=== PATIENT | male | born 1960 | race Caucasian/White ===

== ENCOUNTER 2018-04-03 08:42 | Outpatient (REF) | payer BC, SELFPAY ==
--- NOTE | 2018-04-03 08:00 | PAPNONF_PTH ---
PATIENT: Nabor Polanco LOC: [facility] U#:[id number] AGE/SX: 57/M ROOM: RE04/03/[address]: Garrett Daniel MD : 1960 BED: DIS: 04/03/2018 SPEC #: [id number] RECD: 04/03/18 13:07 STATUS: EMELY REQ #: [id number] RIMA: 04/03/18 08:[address]: Garrett Daniel DEPT: [facility] Cytology RECD BY: Destiny Han ENTERED: 04/03/18 13:08 SP TYPE: PAPTARA TREVINO DR: Jacky Tamayo Tissues: 1 - BODY FLUID CYTO(SPUTUM/URINE)[facility] Procedures: BODY FLUID CYTO(URINE/SPUTUM) Comments: [id number] (TOTAL VOLUME = 40 ml's) (40 ml's URINE & 40 ml's CYTOLYT ADDED)
== END 2018-04-03 09:02 ==
LOC: LBN 08:42
PROVIDERS: PCP Family Medicine; Visit Provider Urology
DX: Z85.51 Personal history of malignant neoplasm of bladder (principal)
CPT/HCPCS: 88104

== ENCOUNTER 2018-10-26 12:35 | Outpatient (REF) | payer BC, SELFPAY ==
[2018-10-26 13:54] LABS: Anion Gap 10.4 mmol/L (3-11); BUN 15 mg/dL (7-18); CO2 26.6 mmol/L (21.0-32.0); CREATININE 0.75 mg/dL (0.70-1.30); Calcium 9.1 mg/dL (8.5-10.1); Chloride 103 mmol/L (98-107); Glucose 95 mg/dL (70-100); Potassium 3.9 mmol/L (3.5-5.1); Sodium 140 mmol/L (136-145)
== END 2018-10-26 12:55 ==
LOC: NCHCN 12:35
PROVIDERS: PCP Family Medicine; Visit Provider Family Medicine
DX: I10 Essential (primary) hypertension (principal)
CPT/HCPCS: 80048

== ENCOUNTER 2019-06-14 09:31 | Outpatient (CLI) | payer BC, SELFPAY ==
[2019-06-14 14:33] LABS: Anion Gap 9.4 mmol/L (3-11); BUN 17 mg/dL (7-18); CO2 29.6 mmol/L (21.0-32.0); CREATININE 0.75 mg/dL (0.70-1.30); Calcium 9.2 mg/dL (8.5-10.1); Chloride 101 mmol/L (98-107); Glucose 82 mg/dL (74-106); Potassium 4.1 mmol/L (3.5-5.1); Sodium 140 mmol/L (136-145)
[2019-06-14 14:50] LABS: Ferritin 78 ng/mL (26-388); TSH 2.13 uIU/mL (0.36-3.74)
== END 2019-06-14 09:51 ==
PROVIDERS: PCP Family Medicine; Visit Provider Nurse Practitioner
DX: M25.50 Pain in unspecified joint (principal); R53.83 Other fatigue; I10 Essential (primary) hypertension; R91.8 Other nonspecific abnormal finding of lung field; F17.209 Nicotine dependence, unspecified, with unspecified nicotine-induced disorders; C67.9 Malignant neoplasm of bladder, unspecified
CPT/HCPCS: 36415; 80048; 80053; 82728; 84443

== ENCOUNTER 2019-06-29 11:52 | Outpatient (REF) | payer BC, SELFPAY ==
--- NOTE | 2019-06-29 11:45 | PAPNONF_PTH ---
PATIENT: Nabor Polanco LOC: [facility] U#:[id number] AGE/SX: 58/M ROOM: RE06/29/[address]: Garrett Daniel MD : 1960 BED: DIS: 06/29/2019 SPEC #: [id number] RECD: 06/29/19 13:11 STATUS: EMELY REQ #: [id number] RIMA: 06/29/19 11:[address]: Garrett Daniel DEPT: [facility] Cytology RECD BY: Destiny Han ENTERED: 06/29/19 13:15 SP TYPE: PAPVINITAF BELINDA DR: Jacky Tamayo Tissues: 1 - BODY FLUID CYTO(SPUTUM/URINE)[facility] Procedures: BODY FLUID CYTO(URINE/SPUTUM) Comments: [id number] (TOTAL VOLUME = 40 ml's) (40 ml's URINE & 40 ml's CYTOLYTE ADDED)
== END 2019-06-29 12:12 ==
LOC: LBN 11:52
PROVIDERS: PCP Family Medicine; Visit Provider Urology
DX: Z85.51 Personal history of malignant neoplasm of bladder (principal)
CPT/HCPCS: 88104

== ENCOUNTER 2019-08-16 01:47 | Outpatient (CLI) | payer BC, SELFPAY ==
--- NOTE | 2019-08-16 | DI.CT_ITS ---
EXAM: CT CHEST WO CLINICAL HISTORY: F/U RT POSTERIOR NODULARITY, LUNG SCAR.J98.4, YEARLY EXAM TECHNIQUE: Imaging Protocol: Axial computed tomography images with coronal and sagittal reformatted images were created and reviewed CONTRAST MATERIAL: None COMPARISON: CHEST WITH CONTRAST from 04/08/2017 FINDINGS: Tracheobronchial tree: Patent where visualized. Mediastinum and Irina: No dominant adenopathy or fluid collection. Pulmonary parenchyma: There has been no change in size or appearance of the previously noted pleural based area of nodularity in the posterior right upper lobe. Minimal emphysematous changes are small b lebs are seen in the upper lobes. There is minimal biapical pleural scarring. There are no new nodule s, infiltrates or evidence of a mass.. Pleura: No effusion or pneumothorax. Heart: The heart is not dilated. Mild coronary artery calcifications are seen. Aorta: Thoracic aorta non-dilated. Mild calcification Upper abdomen: Unremarkable. Lymph nodes: Within normal limits. Bones: Degenerative disc changes IMPRESSION: Stable area of pleural based nodularity in the right upper lobe. No new abnormalities are seen. DATA REPOSITORY: All CT scans at this facility are submitted to the National Radiology Data Registry (NRDR) Dose Index Registry (DIR) with the [employer] (ACR). RADIATION OPTIMIZATION: All CT scans at this facility use at least one of these dose optimization te chniques: automated exposure control; mA and/or kV adjustment per patient size (includes targeted exa ms where dose is matched to clinical indication); or iterative reconstruction.
== END 2019-08-16 02:07 ==
PROVIDERS: PCP Family Medicine; Visit Provider Family Medicine
DX: J98.4 Other disorders of lung (principal); J43.8 Other emphysema
CPT/HCPCS: 71250

== ENCOUNTER 2020-06-21 12:41 | Outpatient (REF) | payer BC, SELFPAY ==
[2020-06-21 16:06] LABS: Anion Gap 5.2 mmol/L (3-11); BUN 14 mg/dL (7-18); CO2 30.8 mmol/L (21.0-32.0); CREATININE 0.8 mg/dL (0.70-1.30); Calcium 9.1 mg/dL (8.5-10.1); Calculated LDL 121 mg/dL (<100); Chloride 104 mmol/L (98-107); Cholesterol 182 mg/dL (<200); Glucose 96 mg/dL (74-106); HDL Cholesterol 46 mg/dL (40-60); Sodium 140 mmol/L (136-145); Triglyceride 78 mg/dL (<150)
== END 2020-06-21 12:42 | disposition home or self-care (01) ==
LOC: NCHCN 12:41
PROVIDERS: PCP Family Medicine; Visit Provider Family Medicine
DX: Z00.00 Encounter for general adult medical examination without abnormal findings (principal); I10 Essential (primary) hypertension; F17.200 Nicotine dependence, unspecified, uncomplicated
CPT/HCPCS: 80048; 80061

== ENCOUNTER 2020-11-08 12:48 | Outpatient (REF) | payer BC, SELFPAY ==
[2020-11-10 11:50] LABS: COVID-19 RT-PCR UVMMC Result Negative (Negative)
== END 2020-11-08 12:49 | disposition home or self-care (01) ==
LOC: LBN 12:48
PROVIDERS: PCP Family Medicine; Visit Provider Physician Assistant Medical
DX: Z20.822 Contact with and (suspected) exposure to COVID-19 (principal); J06.9 Acute upper respiratory infection, unspecified
CPT/HCPCS: U0003

== ENCOUNTER 2021-07-20 18:52 | Outpatient (REF) | payer BC, SELFPAY ==
[2021-07-20 20:29] LABS: BUN 17 mg/dL (7-18); Calcium 9.5 mg/dL (8.5-10.1); Chloride 101 mmol/L (98-107); Glucose 84 mg/dL (74-106); Sodium 140 mmol/L (136-145)
== END 2021-07-20 18:53 | disposition home or self-care (01) ==
LOC: NCHCN 18:52
PROVIDERS: PCP Family Medicine; Visit Provider Family Medicine
DX: I10 Essential (primary) hypertension (principal)
CPT/HCPCS: 80048

== ENCOUNTER 2021-08-01 03:32 | Outpatient (CLI) | payer BC, SELFPAY ==
--- NOTE | 2021-08-23 12:22 | W.CARDEVENT ---
Date of service: 08/23/21 Time of Service: 12:22 Cardiac Event Recorder Referring Provider:: Jacky Tamayo Indications:: Bradycardia Cardiac Event Note: This is a 14-day cardiac exercise physiologist, reportedly ordered for bradycardia. Predominant rhythm was sinus with an average heart rate of 64. Minimum was 39, maximum 127 There were rare ventricular ectopic beats a total of 6 brief runs of nonsustained ventricular tachycardia were recorded. The longest of these was 4 beats in duration There were rare atrial premature beats. A total of 31 self-limited atrial runs occurred. The longest of these was 10 beats in duration There was no atrial fibrillation, no high-grade AV block, no pauses greater than 3 seconds Patient symptoms were reported. Chest pain or pressure with sitting corresponded to sinus bradycardia at 50 with an interpolated PVC Patient symptoms of rapid or fast heartbeat with walking corresponded to sinus rhythm at 90.
== END 2021-08-01 03:33 | disposition home or self-care (01) ==
LOC: RT 03:32
PROVIDERS: PCP Family Medicine; Visit Provider Family Medicine
DX: I49.8 Other specified cardiac arrhythmias (principal); I10 Essential (primary) hypertension; F17.210 Nicotine dependence, cigarettes, uncomplicated; I49.1 Atrial premature depolarization; R00.1 Bradycardia, unspecified
CPT/HCPCS: 93246; 93225

== ENCOUNTER 2021-08-28 10:50 | Outpatient (REF) | payer BC, SELFPAY ==
--- NOTE | 2021-08-28 10:05 | SKI_PTH ---
PATIENT: Nabor Polanco LOC: [facility] U#:[id number] AGE/SX: 61/M ROOM: RE08/28/[address]: Jacky Tamayo : 1960 BED: DIS: 08/28/2021 SPEC #: [id number] RECD: 08/28/21 16:38 STATUS: EMELY RAY #: [id number] RIMA: 08/28/21 10:[address]: Jacky Tamayo DEPT: Surgical Specimen RECD BY: Destiny Han Tissues: 1 - SKIN BIOPSY(SHAVE/PUNCH) Procedures: SKIN LEVEL 4 Comments: [id number]
== END 2021-08-28 10:51 | disposition home or self-care (01) ==
LOC: NCHCN 10:50
PROVIDERS: PCP Family Medicine; Visit Provider Family Medicine
DX: L82.1 Other seborrheic keratosis (principal)
CPT/HCPCS: 88305

== ENCOUNTER 2021-10-19 08:58 | Outpatient (CLI) | payer BC, SELFPAY ==
--- NOTE | 2021-10-19 08:45 | RT.EKG_ITS ---
APPROVED REPORT Exam: Resting ECG Reason for Exam: bradycardia Patient Location: O HR:61 bpm ECG Measurements Heart Rate 61 AXIS SC 165 P 68 QRSd 118 QRS 21 QT 413 T 28 QTc 416 Conclusion Sinus rhythm...normal P axis, V-rate 50- 99 Incomplete right bundle branch block...QRSd >112, terminal axis(90,270)
== END 2021-10-19 08:59 | disposition home or self-care (01) ==
LOC: DI.CARD 08:59
PROVIDERS: PCP Family Medicine; Visit Provider Internal Medicine Cardiovascular Disease
DX: I49.8 Other specified cardiac arrhythmias (principal)
CPT/HCPCS: 93010

== ENCOUNTER 2022-04-12 11:48 | Outpatient (REF) | payer BC, SELFPAY ==
--- NOTE | 2022-04-12 11:15 | ANUSTAG_PTH ---
PATIENT: Nabor Polanco LOC: [facility]#:[id number] AGE/SX: 61/M ROOM: RE04/12/[address]: Jacky Tamayo : 1960 BED: DIS: 04/12/2022 SPEC #: [id number] RECD: 04/15/22 12:08 STATUS: EMELY REQ #: [id number] RIMA: 04/12/22 11:[address]: Jacky Tamayo DEPT: Surgical Specimen RECD BY: Destiny Han Tissues: 1 - ANUS TAG Procedures: SKIN LEVEL 4 P16 IPEX Comments: [id number]
== END 2022-04-12 11:49 | disposition home or self-care (01) ==
LOC: NCHCN 11:48
PROVIDERS: PCP Family Medicine; Visit Provider Family Medicine
DX: K62.82 Dysplasia of anus (principal)
CPT/HCPCS: 88342; 88304; 88305

== ENCOUNTER 2022-09-11 18:07 | Outpatient (REF) | payer BC, SELFPAY ==
[2022-09-11 18:30] LABS: Anion Gap 4.3 mmol/L (3-11); BUN 13 mg/dL (7-18); CO2 32.7 mmol/L (21.0-32.0); Calcium 9.5 mg/dL (8.5-10.1); Chloride 101 mmol/L (98-107); Estimated GFR 86.16 (mL/min/1.73m2); Glucose 104 mg/dL (74-106); Sodium 138 mmol/L (136-145)
== END 2022-09-11 18:08 | disposition home or self-care (01) ==
LOC: NCHCN 18:07
PROVIDERS: PCP Family Medicine; Visit Provider Family Medicine
DX: I10 Essential (primary) hypertension (principal)
CPT/HCPCS: 80048

== ENCOUNTER 2023-03-18 16:19 | Outpatient (REF) | payer BC, SELFPAY ==
--- NOTE | 2023-03-18 10:11 | SKI_PTH ---
PATIENT: Nabor Polanco LOC: [facility]#:[id number] AGE/SX: 62/M ROOM: RE03/18/[address]: Jacky Tamayo : 1960 BED: DIS: 03/18/2023 SPEC #: [id number] RECD: 03/19/23 12:49 STATUS: EMELY RAY #: [id number] RIMA: 03/18/23 10:[address]: Jacky Tamayo DEPT: Surgical Specimen RECD BY: Destiny Han Tissues: 1 - SKIN BIOPSY(SHAVE/PUNCH) Procedures: SKIN LEVEL 4 Comments: [id number]
== END 2023-03-18 16:20 | disposition home or self-care (01) ==
LOC: NCHCN 16:19
PROVIDERS: PCP Family Medicine; Visit Provider Family Medicine
DX: L98.8 Other specified disorders of the skin and subcutaneous tissue (principal); L28.1 Prurigo nodularis
CPT/HCPCS: 88305

== ENCOUNTER 2023-09-16 14:37 | Outpatient (REF) | payer BC, SELFPAY ==
[2023-09-16 15:37] LABS: Abs Immature Grans 0.01 10^3/uL (0.0-0.06); Absolute Basophil Count 0.02 10^3/uL (0.0-0.2); Absolute Eosinophil Count 0.08 10^3/uL (0.0-0.7); Absolute Lymphocyte Count 2.16 10^3/uL (1.2-3.4); Absolute Monocyte Count 0.54 10^3/uL (0.1-0.8); Absolute Neutrophil Count 3.04 10^3/uL (1.2-6.7); Basophils % 0.3 %; Eosinophils % 1.4 %; HCT 42.2 % (40.0-50.0); Immature Grans % 0.2 %; Lymphocytes % 36.9 %; MCH 29.7 pg (27.0-33.0); MCHC 33.2 % (32.0-36.0); MCV 89 fL (80-95); MPV 8.7 fL (8.0-11.0); Monocytes % 9.2 %; Platelet Count 269 10^3/uL (130-400); RBC 4.72 10^6/uL (4.36-5.78); RDW 13.1 % (11.8-14.1); RDW-SD 42.7 fL; WBC 5.85 10^3/uL (4.4-10.8)
[2023-09-16 15:46] LABS: Anion Gap 7.8 mmol/L (3-11); BUN 18 mg/dL (7-18); CO2 31.2 mmol/L (21.0-32.0); CREATININE 0.9 mg/dL (0.70-1.30); Calcium 9.2 mg/dL (8.5-10.1); Calculated LDL 85 mg/dL (<100); Chloride 103 mmol/L (98-107); Cholesterol 143 mg/dL (<200); Estimated GFR 97.17 (mL/min/1.73m2); Glucose 80 mg/dL (74-106); HDL Cholesterol 39 mg/dL (40-60); Sodium 142 mmol/L (136-145); Triglyceride 97 mg/dL (<150)
[2023-09-16 16:11] LABS: Hemoglobin A1C 6.3 % (<5.7)
[2023-09-17 10:34] LABS: HIV-1/2 Ag & Ab Screen Negative (Negative)
== END 2023-09-16 14:38 | disposition home or self-care (01) ==
LOC: NCHCN 14:37
PROVIDERS: PCP Family Medicine; Visit Provider Student in an Organized Health Care Education/Training Program
DX: E78.5 Hyperlipidemia, unspecified (principal); I10 Essential (primary) hypertension; Z11.4 Encounter for screening for human immunodeficiency virus [HIV]
CPT/HCPCS: 80048; 80061; 87389; 83036; 85025

== ENCOUNTER 2023-11-25 15:56 | Outpatient (CLI) | payer BC, SELFPAY ==
[2023-11-25 14:22] LABS: Abs Immature Grans 0.01 10^3/uL (0.0-0.06); Absolute Basophil Count 0.03 10^3/uL (0.0-0.2); Absolute Eosinophil Count 0.04 10^3/uL (0.0-0.7); Absolute Neutrophil Count 4.47 10^3/uL (1.2-6.7); Basophils % 0.4 %; Eosinophils % 0.5 %; HCT 45.6 % (40.0-50.0); HGB 15.4 g/dL (13.5-17.5); Immature Grans % 0.1 %; Lymphocytes % 29.9 %; MCH 29.7 pg (27.0-33.0); MCHC 33.8 % (32.0-36.0); MCV 88 fL (80-95); MPV 8.3 fL (8.0-11.0); Monocytes % 8.2 %; Neutrophils % 60.9 %; Platelet Count 244 10^3/uL (130-400); RBC 5.18 10^6/uL (4.36-5.78); RDW 12.7 % (11.8-14.1); RDW-SD 41.4 fL; WBC 7.35 10^3/uL (4.4-10.8)
[2023-11-25 14:27] LABS: ESR 4 mm/hr (0-20)
[2023-11-25 15:09] LABS: ALT 23 U/L (16-63); AST 10 U/L (15-37); Albumin 4.1 g/dL (3.4-5.0); Alkaline Phosphatase 66 U/L (46-116); Anion Gap 7.7 mmol/L (3-11); BUN 15 mg/dL (7-18); Bilirubin, Total 0.42 mg/dL (0.2-1.0); CO2 30.3 mmol/L (21.0-32.0); Calcium 9.3 mg/dL (8.5-10.1); Chloride 99 mmol/L (98-107); Estimated GFR 85.63 (mL/min/1.73m2); Folate 10.9 ng/mL (8.6-20.0); Glucose 152 mg/dL (74-106); Potassium 3.5 mmol/L (3.5-5.1); Sodium 137 mmol/L (136-145); TSH (W/Ref FT4) 1.79 uIU/mL (0.36-3.74); Total Protein 7.5 g/dL (6.4-8.2); Vitamin B12 314 pg/mL (193-986)
[2023-11-25 15:34] LABS: C-Reactive Protein < 0.50 mg/dL (<or=0.5)
[2023-11-27 20:24] LABS: Anaplasma phagocytophilum Negative (Negative); B. miyamotoi PCR Negative (Negative); Babesia divergens/MO-1 Negative (Negative); Babesia duncani Negative (Negative); Babesia microti Negative (Negative); Ehrlichia chaffeensis Negative (Negative); Ehrlichia ewingii/canis Negative (Negative); Ehrlichia muris eauclairensis Negative (Negative)
== END 2023-11-25 15:57 | disposition home or self-care (01) ==
LOC: LBO 15:57
PROVIDERS: PCP Family Medicine; Visit Provider Student in an Organized Health Care Education/Training Program
DX: R20.2 Paresthesia of skin (principal)
CPT/HCPCS: 36415; 80053; 85652; 87798; 82607; 82746; 84443; 85025; 86140

== ENCOUNTER 2023-12-29 16:40 | Outpatient (CLI) | payer BC, SELFPAY ==
[2023-12-29 11:51] LABS: Bilirubin Small (Negative); Blood Negative (Negative); Clarity Clear (Clear); Glucose Negative (Negative); Ketones Trace mg/dL (Negative); Leukocyte Esterase Negative (Negative); Nitrite Negative (Negative); Specific Gravity >= 1.030 (1.005-1.025); pH 5.5 (5-8)
[2023-12-29 12:25] LABS: FREE T4 1.38 ng/dL (0.76-1.46); TSH 1.55 uIU/Ml (0.36-3.74)
[2023-12-29 18:03] LABS: T3, Total 166 ng/dL (97-169)
[2024-01-02 00:16] LABS: PSA, Screening 0.5 ng/mL (<=4.5)
== END 2023-12-29 16:41 | disposition home or self-care (01) ==
LOC: LBO 16:43
PROVIDERS: PCP Student in an Organized Health Care Education/Training Program; Visit Provider Student in an Organized Health Care Education/Training Program
DX: R20.2 Paresthesia of skin (principal)
CPT/HCPCS: 36415; 84153; 81003; 84439; 84443; 84480

== ENCOUNTER 2024-01-20 10:28 | Outpatient (CLI) | payer BC, SELFPAY ==
[2024-01-20 11:34] LABS: Anion Gap 10.6 mmol/L (3-11); BUN 12 mg/dL (7-18); CO2 29.4 mmol/L (21.0-32.0); CREATININE 0.9 mg/dL (0.70-1.30); Calcium 9.6 mg/dL (8.5-10.1); Chloride 99 mmol/L (98-107); Estimated GFR 97.17 (mL/min/1.73m2); Glucose 107 mg/dL (74-106); Potassium 3.9 mmol/L (3.5-5.1); Sodium 139 mmol/L (136-145)
== END 2024-01-20 10:29 | disposition home or self-care (01) ==
LOC: LBO 10:28
PROVIDERS: PCP Student in an Organized Health Care Education/Training Program; Visit Provider Student in an Organized Health Care Education/Training Program
DX: R63.4 Abnormal weight loss (principal)
CPT/HCPCS: 36415; 80048

== ENCOUNTER 2024-01-27 08:46 | Outpatient (CLI) | payer BC, SELFPAY ==
--- NOTE | 2024-01-27 | DI.MRI_ITS ---
Exam(s) MR LUMBAR SPINE WO EXAM: MR LUMBAR SPINE WO CLINICAL HISTORY: HEMANGIOMA L [address] scan,paresthesia both legs. TECHNIQUE: Multiplanar multisequence MRI of the Lumbar spine was performed. COMPARISON: CT CT CHEST/ABD/PEL W from 01/23/2024 FINDINGS: Conus medullaris is at normal level. There is no evidence of conus mass nor subjacent clumping of in trathecal nerve roots to suggest arachnoiditis. 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 This is assoc iated with benign smooth osseous erosion of the right-side of the sacral canal at this level. Bones:There are no fractures nor ominous osseous lesions in the lumbar vertebral bodies and visualize d sacrum. There is a benign intravertebral benign hemangioma in the L2 vertebra extending from super ior to inferior endplate measuring 2.3 cm craniocaudal by 1.8 cm AP by 1.6 cm wide. Smaller intraoss eous hemangioma is noted in the L1 and L3 vertebral bodies. With respect to the individual disc levels, there is no loss of disc height and there is normal disc signal at all levels of the lumbar spine in this 63-year-old patient. T12-L1: Anterior osseous lipping. No disc herniation or canal stenosis nor foraminal stenosis. No s ignificant facet arthropathy. L1-2: Anterior osseous lipping. Normal disc height and signal. No disc herniation nor central canal stenosis.No foraminal stenosis L2-3: Anterior osseous lipping. Normal disc height. Mild relatively symmetrical annular bulging but no significant focal disc herniation or central canal stenosis.No foraminal stenosis.No facet arthrop athy. L3-4: Normal disc height and signal. No disc herniation or central canal stenosis.No foraminal steno sis.No significant facet arthropathy. L4-5: Normal disc height and signal. No disc herniation or canal stenosis. No foraminal stenosis. No significant facet arthropathy L5-S1: Normal disc height and signal. No disc herniation nor central canal stenosis. No significant foraminal stenosis. No significant facet arthropathy Soft tissues: paraspinal soft tissues appear unremarkable. IMPRESSION: 1. No significant degenerative disc disease in the lumbosacral spine. 2. 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 This is associat ed with benign smooth erosion of the right-side of the sacral canal at this level. On the axial T2 s equence at this level there is some compression of the exiting right nerve root at this level (axial T2 series 35429/image 3). 3. Benign intraosseous hemangiomas noted in L2, L3, and L1 vertebral bodies. These are not clinicall y significant. DATA REPOSITORY:
== END 2024-01-27 09:06 ==
LOC: DI 08:49
PROVIDERS: PCP Student in an Organized Health Care Education/Training Program; Visit Provider Student in an Organized Health Care Education/Training Program
DX: G96.191 Perineural cyst (principal)
CPT/HCPCS: 72148

== ENCOUNTER 2024-08-05 14:31 | Outpatient (REF) | payer MEDICAID, SELFPAY ==
[2024-08-05 15:30] LABS: Anion Gap 7.9 mmol/L (3-11); BUN 14 mg/dL (7-18); CO2 31.1 mmol/L (21.0-32.0); CREATININE 0.9 mg/dL (0.70-1.30); Calcium 9.8 mg/dL (8.5-10.1); Chloride 101 mmol/L (98-107); Estimated GFR 97.17 (mL/min/1.73m2); Glucose 80 mg/dL (74-106); Sodium 140 mmol/L (136-145)
[2024-08-05 16:59] LABS: COMMENT (LAB VIEW ONLY) 91.82 mg/dL; Microalb ug/mg Crea 5.4 ug/mg Cr
== END 2024-08-05 14:32 | disposition home or self-care (01) ==
LOC: NCHCN 14:31
PROVIDERS: PCP Student in an Organized Health Care Education/Training Program; Visit Provider Student in an Organized Health Care Education/Training Program
DX: I10 Essential (primary) hypertension (principal)
CPT/HCPCS: 80048; 82043; 82570

== ENCOUNTER 2024-10-14 11:17 | Outpatient (CLI) | payer MEDICAID, SELFPAY ==
[2024-10-14 11:37] LABS: Abs Immature Grans 0.01 10^3/uL (0.0-0.06); Absolute Basophil Count 0.02 10^3/uL (0.0-0.2); Absolute Eosinophil Count 0.08 10^3/uL (0.0-0.7); Absolute Monocyte Count 0.47 10^3/uL (0.1-0.8); Absolute Neutrophil Count 4.12 10^3/uL (1.2-6.7); Basophils % 0.3 %; Eosinophils % 1.4 %; HCT 41.8 % (40.0-50.0); HGB 14.2 g/dL (13.5-17.5); Immature Grans % 0.2 %; MCH 30.4 pg (27.0-33.0); MCV 90 fL (80-95); MPV 8.8 fL (8.0-11.0); Monocytes % 8.1 %; Platelet Count 227 10^3/uL (130-400); RBC 4.67 10^6/uL (4.36-5.78); RDW 13.2 % (11.8-14.1); RDW-SD 43.4 fL
[2024-10-14 12:23] LABS: ALT 36 U/L (16-63); AST 21 U/L (15-37); Albumin 3.9 g/dL (3.4-5.0); Alkaline Phosphatase 77 U/L (46-116); Bilirubin, Direct 0.1 mg/dL (0.0-0.2); Bilirubin, Total 0.4 mg/dL (0.2-1.0); Total Protein 7.3 g/dL (6.4-8.2)
== END 2024-10-14 11:18 | disposition home or self-care (01) ==
LOC: LBO 11:18
PROVIDERS: PCP Student in an Organized Health Care Education/Training Program; Visit Provider Psychiatry & Neurology Neurology
DX: G35 Multiple sclerosis (principal)
CPT/HCPCS: 36415; 80076; 85025

== ENCOUNTER 2025-01-13 09:38 | Outpatient (CLI) | payer MEDICAID, SELFPAY ==
[2025-01-13 09:36] LABS: Abs Immature Grans 0.03 10^3/uL (0.0-0.06); HCT 42.9 % (40.0-50.0); HGB 14.3 g/dL (13.5-17.5); Immature Grans % 0.5 %; MCH 29.1 pg (27.0-33.0); MCHC 33.3 % (32.0-36.0); MCV 87 fL (80-95); MPV 8.2 fL (8.0-11.0); Platelet Count 220 10^3/uL (130-400); RBC 4.92 10^6/uL (4.36-5.78); RDW 13.4 % (11.8-14.1); RDW-SD 42.8 fL; WBC 6.28 10^3/uL (4.4-10.8)
[2025-01-13 10:34] LABS: ALT 33 U/L (16-63); AST 20 U/L (15-37); Albumin 3.9 g/dL (3.4-5.0); Alkaline Phosphatase 64 U/L (46-116); Bilirubin, Direct 0.1 mg/dL (0.0-0.2); Bilirubin, Total 0.3 mg/dL (0.2-1.0); Total Protein 7.1 g/dL (6.4-8.2)
== END 2025-01-13 09:39 | disposition home or self-care (01) ==
LOC: LBO 09:38
PROVIDERS: PCP Student in an Organized Health Care Education/Training Program; Visit Provider Psychiatry & Neurology Neurology
DX: G35 Multiple sclerosis (principal)
CPT/HCPCS: 36415; 80076; 85025

== ENCOUNTER 2025-02-15 02:11 | Outpatient (CLI) | payer MEDICAID, SELFPAY ==
--- NOTE | 2025-02-15 | DI.CTLCSR_ITS ---
Exam(s) CT CHEST LUNG CANCER SCREEN EXAM: CT CHEST LUNG CANCER SCREEN CLINICAL HISTORY: TOBACCO DEPENDENCE, F17.210 TECHNIQUE: Imaging Protocol: Axial computed tomography images with coronal and sagittal reformatted images were created and reviewed. Low dose screening protocol. COMPARISON: CT CT CHEST LUNG CANCER SCREEN from 12/10/2023 FINDINGS: Tracheobronchial tree: No bronchiectasis or mucus plugging. Previously noted endobronchial nodule/mucous plugging in the right upper lobe is not present. Mediastinum and Irina: No dominant adenopathy or fluid collection. Pulmonary parenchyma: No consolidation or dominant measurable mass. No visible emphysematous changes. No significant interstitial changes. Lung Nodules: None. Pleura: No effusion. No pneumothorax. There are again noted to be posterior small pleural plaques in the upper lobes. Heart: The heart is not dilated. Mild coronary artery calcifications are seen. No pericardial effusion. Aorta: Thoracic aorta non-dilated. Upper abdomen: Unremarkable. Bones: Prominent endplate osteophytes. Soft Tissues: Unremarkable. IMPRESSION: No suspicious pulmonary nodules. Lung RADS Cat 1 - Negative: No nodules and definitely benign nodules Lung-RADS 1.0 CATEGORIES: Category 0 - Prior chest CT exam(s) being located for comparison. Category 1 - Annual screening in 12 months. No nodules or definitely benign nodules. Category 2 - Annual screening in 12 months. Benign appearance. Nodules with low likelihood of becoming active cancer. Category 3 - 6-month follow-up. Probably benign. Short-term follow-up suggested. Nodules with low likelihood of becoming active cancer. Category 4A - 3-month follow-up and CT/PET if >8 mm in size. Suspicious finding. Findings which require additional testing. Category 4B - Findings which require additional testing and tissue sampling. Category 4X - Category 3 or 4 nodules with additional features or imaging findings that increases the suspicion of malignancy. Modifier S- Potentially clinically significant findings (non lung cancer) RADIATION DOSE DELIVERED: 29.31mGy.cm Total DLP DATA REPOSITORY: All CT scans at this facility are submitted to the National Radiology Data Registry (NRDR) Dose Index Registry (DIR) with the [employer] (ACR). RADIATION OPTIMIZATION: All CT scans at this facility use at least one of these dose optimization techniques: automated exposure control; mA and/or kV adjustment per patient size (includes targeted exams where dose is matched to clinical indication); or iterative reconstruction.
== END 2025-02-15 02:31 ==
PROVIDERS: PCP Student in an Organized Health Care Education/Training Program; Visit Provider Student in an Organized Health Care Education/Training Program
DX: Z12.31 Encounter for screening mammogram for malignant neoplasm of breast (principal); F17.210 Nicotine dependence, cigarettes, uncomplicated
CPT/HCPCS: 71271

== ENCOUNTER 2025-04-13 10:41 | Outpatient (CLI) | payer MEDICAID, SELFPAY ==
[2025-04-13 10:49] LABS: Abs Immature Grans 0.01 10^3/uL (0.0-0.06); HCT 46.3 % (40.0-50.0); HGB 16.0 g/dL (13.5-17.5); Immature Grans % 0.2 %; MCH 31.0 pg (27.0-33.0); MCHC 34.6 % (32.0-36.0); MCV 90 fL (80-95); MPV 8.2 fL (8.0-11.0); Platelet Count 256 10^3/uL (130-400); RBC 5.16 10^6/uL (4.36-5.78); RDW 13.1 % (11.8-14.1); RDW-SD 43.2 fL; WBC 6.20 10^3/uL (4.4-10.8)
[2025-04-13 11:13] LABS: ALT 20 U/L (10-49); AST 19 U/L (<34); Albumin 4.6 g/dL (3.2-5.0); Alkaline Phosphatase 67 U/L (46-116); Bilirubin, Direct 0.1 mg/dL (<=0.3); Bilirubin, Total 0.3 mg/dL (0.2-1.2); Total Protein 7.4 g/dL (5.7-8.2)
== END 2025-04-13 10:42 | disposition home or self-care (01) ==
LOC: LBO 10:41
PROVIDERS: PCP Student in an Organized Health Care Education/Training Program; Visit Provider Psychiatry & Neurology Neurology
DX: G35.D Multiple sclerosis, unspecified (principal)
CPT/HCPCS: 36415; 80076; 85025